=== PATIENT | male | born 1980 | race Caucasian/White ===

== ENCOUNTER 2016-06-14 06:33 | Emergency (ER) | payer MEDICAID ==
[~2016-06-14] VITALS: Ht 175.3 cm; Wt 62.2 kg
[~2016-06-14 06:33] MED LIST: ALBUTEROL MDI; AMOX1TAB64 PO; FLUT1DIS3 INH; HYDR4TAB16 PO; OXYC-302 PO
[2016-06-14] MEDS ORDERED: HYDROmorphone 1 MG/ML, 1ML IM ONE (07:00)
[2016-06-14] MEDS ORDERED: ALBU6.7H INH (07:05)
[2016-06-14] MEDS ORDERED: HYDROmorphone 1 MG/ML, 1ML ONE (07:15)
[2016-06-14] MEDS ORDERED: TRIA10.8 NAS (07:24)
[2016-06-14 08:19] VITALS: BP 120/75
== END 2016-06-14 08:21 | disposition home or self-care (01) ==
LOC: ED 07:32
DX: S72.111A Displaced fracture of greater trochanter of right femur, initial encounter for closed fracture (principal); J45.31 Mild persistent asthma with (acute) exacerbation; Z88.8 Allergy status to other drugs, medicaments and biological substances; Z91.018 Allergy to other foods; X58.XXXA Exposure to other specified factors, initial encounter; Y93.89 Activity, other specified; Y99.8 Other external cause status; Y92.89 Other specified places as the place of occurrence of the external cause
CPT/HCPCS: 73502; 96372; 99284; J1170

== ENCOUNTER 2016-06-21 02:53 | Emergency (ER) | payer MEDICAID ==
[~2016-06-21] VITALS: Ht 175.3 cm; Wt 58.6 kg
[~2016-06-21 02:53] MED LIST changes: +ALBU6.7H INH; +TRIA10.8 NAS
[2016-06-21 02:54] VITALS: BP 108/72
[2016-06-21] MEDS ORDERED: KETOROLAC 30 MG/1 ML ONE (04:24)
[2016-06-21] MEDS ORDERED: KETOROLAC 30 MG/1 ML IM ONE (04:30)
== END 2016-06-21 05:51 | disposition home or self-care (01) ==
LOC: ED 05:45
DX: M25.551 Pain in right hip (principal); G89.29 Other chronic pain; J45.909 Unspecified asthma, uncomplicated; Z87.01 Personal history of pneumonia (recurrent); F12.10 Cannabis abuse, uncomplicated
CPT/HCPCS: 73502; 96372; 99284; J1885

== ENCOUNTER 2016-07-07 01:38 | Emergency (ER) | payer MEDICAID ==
[~2016-07-07] VITALS: Ht 175.3 cm; Wt 55.6 kg
[2016-07-07 01:40] VITALS: BP 99/64
[2016-07-07] MEDS ORDERED: SODIUM CHLORIDE 0.9% 1,000ML IVBOLUS ONE (02:00)
[2016-07-07] MEDS ORDERED: ONDANSETRON 2MG/ML, 2ML IVPush ONE (02:00)
[2016-07-07] MEDS ORDERED: SODIUM CHLORIDE FLUSH 10ML SYR IVF ONE (02:00)
[2016-07-07 02:37] LABS: ASPARTATE AMINO TRANSFERASE 25 U/L (15-37); BLOOD UREA NITROGEN 12 mg/dL (7-18)
[2016-07-07] MEDS ORDERED: ONDANSETRON 2MG/ML, 2ML ONE (02:43)
== END 2016-07-07 03:46 | disposition home or self-care (01) ==
LOC: ED 02:59
DX: K29.00 Acute gastritis without bleeding (principal); J45.909 Unspecified asthma, uncomplicated
CPT/HCPCS: 36415; 80053; 83690; 85025; 99284

== ENCOUNTER 2016-07-10 00:26 | Emergency (ER) | payer MEDICAID ==
[2016-07-11] MEDS ORDERED: OXYC-302 PO (18:21)
== END 2016-07-10 00:58 | disposition left against medical advice (07) ==
LOC: ED 00:52
DX: M79.604 Pain in right leg (principal)

== ENCOUNTER 2016-07-11 17:16 | Emergency (ER) | payer MEDICAID ==
[~2016-07-11] VITALS: Ht 175.3 cm; Wt 57.4 kg
[2016-07-11] MEDS ORDERED: IBUPROFEN 200 MG TABLET ONE (18:17)
[2016-07-11] MEDS ORDERED: OXYC-302 PO (18:21)
[2016-07-11] MEDS ORDERED: IBUPROFEN 200 MG TABLET PO ONE (18:30)
[2016-07-11 19:13] VITALS: BP 114/71
== END 2016-07-11 19:16 | disposition home or self-care (01) ==
LOC: ED 18:37
DX: S72.111A Displaced fracture of greater trochanter of right femur, initial encounter for closed fracture (principal); J45.909 Unspecified asthma, uncomplicated; M25.551 Pain in right hip; X58.XXXA Exposure to other specified factors, initial encounter; Y93.89 Activity, other specified; Y99.8 Other external cause status; Y92.89 Other specified places as the place of occurrence of the external cause
CPT/HCPCS: 99284

== ENCOUNTER 2016-07-20 02:45 | Emergency (ER) | payer MEDICAID ==
[~2016-07-20] VITALS: Ht 175.3 cm; Wt 57.9 kg
[2016-07-20] MEDS ORDERED: LIDOCAINE 1%, 20ML ONE (03:27)
[2016-07-20] MEDS ORDERED: LIDOCAINE 1%, 20ML SQ ONE (03:30)
[2016-07-20] MEDS ORDERED: OXYcodone/APAP 5/325MG TABLET ONE ×2 (04:41→05:45)
[2016-07-20] MEDS ORDERED: KETOROLAC 30 MG/1 ML ONE (04:41)
[2016-07-20] MEDS ORDERED: KETOROLAC 30 MG/1 ML IM ONE (05:00)
[2016-07-20] MEDS ORDERED: OXYcodone/APAP 5/325MG TABLET PO ONE ×2 (05:00→06:00)
[2016-07-20] MEDS ORDERED: CEFAZOLIN 1,000 MG ONE (05:45)
[2016-07-20 05:50] VITALS: BP 108/64
[2016-07-20] MEDS ORDERED: CEFAZOLIN 1,000 MG IM ONE (06:00)
== END 2016-07-20 06:22 | disposition home or self-care (01) ==
LOC: ED 03:26
DX: L03.116 Cellulitis of left lower limb (principal)
CPT/HCPCS: 96372; 99284; J0690; J1885

== ENCOUNTER 2016-08-03 20:17 | Emergency (ER) | payer MEDICAID ==
[~2016-08-03] VITALS: Ht 175.3 cm; Wt 55.7 kg
[2016-08-03 20:21] VITALS: BP 125/80
[2016-08-03] MEDS ORDERED: BUPIVACAINE/PF 0.5% ONE (20:54)
[2016-08-03] MEDS ORDERED: LIDOCAINE 1%, 20ML ONE (20:55)
[2016-08-03] MEDS ORDERED: BUPIVACAINE/PF-EPI 0.25% 1:200K SQ ONE (21:00)
[2016-08-03] MEDS ORDERED: LIDOCAINE 1%, 20ML SQ ONE (21:00)
== END 2016-08-03 21:21 | disposition home or self-care (01) ==
LOC: ED 21:00
DX: K04.7 Periapical abscess without sinus (principal); K02.9 Dental caries, unspecified; J45.909 Unspecified asthma, uncomplicated; F17.200 Nicotine dependence, unspecified, uncomplicated
CPT/HCPCS: 64400

== ENCOUNTER 2016-08-22 17:34 | Emergency (ER) | payer MEDICAID ==
[~2016-08-22] VITALS: Ht 175.3 cm; Wt 56.2 kg
[2016-08-22 18:14] VITALS: BP 106/72
[2016-08-22] MEDS: ALBUTEROL/IPRATROPIUM 2.5MG/0.5MG, 3 ML NPPB SCH (18:31)
== END 2016-08-22 19:07 | disposition home or self-care (01) ==
LOC: ED 18:40
DX: J98.01 Acute bronchospasm (principal); Z88.6 Allergy status to analgesic agent
CPT/HCPCS: 93005; 94640; 99283; J7512; J7620

== ENCOUNTER 2016-08-31 00:32 | Emergency (ER) | payer MEDICAID ==
[~2016-08-31] VITALS: Ht 175.3 cm; Wt 54.7 kg
[~2016-08-31 00:32] MED LIST changes: -HYDR4TAB16 PO; +HYDR4TAB48 PO
[2016-08-31 00:37] VITALS: BP 107/69
[2016-08-31] MEDS ORDERED: ALBUTEROL/IPRATROPIUM 2.5MG/0.5MG, 3 ML NPPB SCH (01:00)
[2016-08-31] MEDS ORDERED: ALBUTEROL/IPRATROPIUM 2.5MG/0.5MG, 3 ML ONE (01:03)
== END 2016-08-31 02:06 | disposition left against medical advice (07) ==
LOC: ED 01:25
DX: J45.41 Moderate persistent asthma with (acute) exacerbation (principal); Z87.01 Personal history of pneumonia (recurrent); F17.200 Nicotine dependence, unspecified, uncomplicated; Z88.8 Allergy status to other drugs, medicaments and biological substances
CPT/HCPCS: 71010; 94640; 99283; J7512; J7620

== ENCOUNTER 2016-09-23 00:35 | Emergency (ER) | payer MEDICAID ==
[~2016-09-23] VITALS: Ht 175.3 cm; Wt 57.1 kg
[2016-09-23 00:36] VITALS: BP 115/79
[2016-09-23] MEDS ORDERED: CEFTRIAXONE 250 MG ONE (01:18)
[2016-09-23] MEDS ORDERED: AZITHROMYCIN 250 MG TABLET ONE (01:18)
[2016-09-23] MEDS ORDERED: CEFTRIAXONE 250 MG IM ONE (01:30)
[2016-09-23] MEDS ORDERED: AZITHROMYCIN 500 MG TABLET PO ONE (01:30)
== END 2016-09-23 01:33 | disposition home or self-care (01) ==
LOC: ED 01:00
DX: N34.1 Nonspecific urethritis (principal); A74.89 Other chlamydial diseases; A54.9 Gonococcal infection, unspecified; J45.909 Unspecified asthma, uncomplicated; F17.200 Nicotine dependence, unspecified, uncomplicated
CPT/HCPCS: 87491; 87591; 96372; 99283; J0696

== ENCOUNTER 2017-11-03 21:28 | Emergency (ER) | payer SELFPAY ==
[~2017-11-03] VITALS: Ht 175.3 cm; Wt 58.1 kg
[2017-11-03 21:29] VITALS: BP 120/77
== END 2017-11-03 22:28 | disposition home or self-care (01) ==
LOC: ED 22:00
DX: M79.671 Pain in right foot (principal); J45.909 Unspecified asthma, uncomplicated
CPT/HCPCS: 99283

== ENCOUNTER 2017-12-12 10:09 | Emergency (ER) | payer MEDICAID ==
[~2017-12-12] VITALS: Ht 175.3 cm; Wt 59.0 kg
[2017-12-12] MEDS ORDERED: ALBUTEROL/IPRATROPIUM 2.5MG/0.5MG, 3 ML NPPB ONE (11:30)
[2017-12-12 11:46] VITALS: BP 97/59
== END 2017-12-12 12:24 | disposition home or self-care (01) ==
LOC: ED 12:20
DX: J45.41 Moderate persistent asthma with (acute) exacerbation (principal); F17.210 Nicotine dependence, cigarettes, uncomplicated; F41.1 Generalized anxiety disorder
CPT/HCPCS: 93005; 94640; 99283; J7512; J7620

== ENCOUNTER 2017-12-19 06:24 | Emergency (ER) | payer MEDICAID ==
[~2017-12-19] VITALS: Ht 175.3 cm; Wt 58.7 kg
[2017-12-19 06:26] VITALS: BP 118/77
== END 2017-12-19 07:15 | disposition home or self-care (01) ==
LOC: ED 07:15
DX: R06.2 Wheezing (principal); Z76.0 Encounter for issue of repeat prescription; R06.02 Shortness of breath
CPT/HCPCS: 99283

== ENCOUNTER 2018-01-16 04:00 | Emergency (ER) | payer MEDICAID ==
[~2018-01-16] VITALS: Ht 175.3 cm; Wt 59.4 kg
[2018-01-16 04:03] VITALS: BP 122/73
[2018-01-16] MEDS ORDERED: ALBUTEROL/IPRATROPIUM 2.5MG/0.5MG, 3 ML ONE (04:51)
[2018-01-16] MEDS ORDERED: ALBUTEROL/IPRATROPIUM 2.5MG/0.5MG, 3 ML NPPB SCH (05:00)
== END 2018-01-16 06:02 | disposition home or self-care (01) ==
LOC: ED 05:19
DX: J45.41 Moderate persistent asthma with (acute) exacerbation (principal); F17.200 Nicotine dependence, unspecified, uncomplicated
CPT/HCPCS: 94640; 99283; J7512; J7620

== ENCOUNTER 2018-01-22 07:03 | Emergency (ER) | payer MEDICAID ==
[~2018-01-22] VITALS: Ht 175.3 cm; Wt 59.8 kg
[2018-01-22] MEDS ORDERED: IBUPROFEN 200 MG TABLET PO ONE (07:30)
[2018-01-22] MEDS ORDERED: IBUPROFEN 200 MG TABLET ONE (07:39)
[2018-01-22 08:55] VITALS: BP 108/65
== END 2018-01-22 08:58 | disposition home or self-care (01) ==
LOC: ED 08:40
DX: S63.621A Sprain of interphalangeal joint of right thumb, initial encounter (principal); F41.9 Anxiety disorder, unspecified; J45.909 Unspecified asthma, uncomplicated; F17.210 Nicotine dependence, cigarettes, uncomplicated; Z87.01 Personal history of pneumonia (recurrent); Z87.19 Personal history of other diseases of the digestive system; Z87.09 Personal history of other diseases of the respiratory system; W01.0XXA Fall on same level from slipping, tripping and stumbling without subsequent striking against object, initial encounter; Y93.89 Activity, other specified; Y92.89 Other specified places as the place of occurrence of the external cause; Y99.8 Other external cause status
CPT/HCPCS: 29125; 99284

== ENCOUNTER 2018-03-11 05:13 | Emergency (ER) | payer MEDICAID ==
[~2018-03-11] VITALS: Ht 175.3 cm; Wt 60.0 kg
[2018-03-11 05:16] VITALS: BP 123/60
== END 2018-03-11 05:52 | disposition home or self-care (01) ==
LOC: ED 05:45
DX: B34.9 Viral infection, unspecified (principal); J45.901 Unspecified asthma with (acute) exacerbation; F17.210 Nicotine dependence, cigarettes, uncomplicated; F41.1 Generalized anxiety disorder
CPT/HCPCS: 99282

== ENCOUNTER 2018-05-08 10:53 | Emergency (ER) | payer MEDICAID ==
[~2018-05-08] VITALS: Ht 175.3 cm; Wt 58.0 kg
[2018-05-08 11:13] VITALS: BP 113/71
[2018-05-08] MEDS ORDERED: ALBUTEROL/IPRATROPIUM 2.5MG/0.5MG, 3 ML ONE (11:30)
[2018-05-08] MEDS ORDERED: ALBUTEROL/IPRATROPIUM 2.5MG/0.5MG, 3 ML NPPB SCH (11:30)
== END 2018-05-08 11:47 | disposition home or self-care (01) ==
LOC: ED 11:39
DX: J45.21 Mild intermittent asthma with (acute) exacerbation (principal); Z76.0 Encounter for issue of repeat prescription
CPT/HCPCS: 99283; J7512

== ENCOUNTER 2018-06-01 22:13 | Emergency (ER) | payer MEDICAID ==
[~2018-06-01] VITALS: Ht 175.3 cm; Wt 58.5 kg
[2018-06-01 22:17] VITALS: BP 113/70
== END 2018-06-01 23:02 | disposition home or self-care (01) ==
LOC: ED 22:56
DX: B34.9 Viral infection, unspecified (principal); Z76.0 Encounter for issue of repeat prescription; F41.1 Generalized anxiety disorder
CPT/HCPCS: 99283

== ENCOUNTER 2018-06-19 14:51 | Emergency (ER) | payer MEDICAID ==
[~2018-06-19] VITALS: Ht 175.3 cm; Wt 56.0 kg
[2018-06-19 15:03] VITALS: BP 110/58
== END 2018-06-19 15:28 | disposition home or self-care (01) ==
LOC: ED 15:20
DX: K02.9 Dental caries, unspecified (principal); K08.89 Other specified disorders of teeth and supporting structures; J45.909 Unspecified asthma, uncomplicated
CPT/HCPCS: 99283

== ENCOUNTER 2018-06-26 02:24 | Emergency (ER) | payer MEDICAID ==
[~2018-06-26] VITALS: Ht 175.3 cm; Wt 57.0 kg
--- NOTE | 2018-06-26 02:45 | NUR ---
FIRST CONTACT WITH PT. PATIENT STATES HE JUST WOKE UP HAVING HARD TIME BREATHING. HX OF ASTHMA. RAN OUT OF INHALER. PT DENIES ANY OTHER S/S. PT'S AOX4. RESPS EVEN AND UNLABORED. BP/SPO2 MONITORS IN PLACE. CALL LIGHT WITHIN REACH.
[2018-06-26] MEDS ORDERED: ALBUTEROL/IPRATROPIUM 2.5MG/0.5MG, 3 ML ONE (02:59)
--- NOTE | 2018-06-26 03:02 | NUR ---
PT MEDICATED PER EMAR. PT TOLERATED WELL. RT AT BEDSIDE NOW.
[2018-06-26] MEDS ORDERED: ALBUTEROL/IPRATROPIUM 2.5MG/0.5MG, 3 ML NPPB PRN (03:30)
--- NOTE | 2018-06-26 04:10 | NUR ---
pt sleeping in [facility]. bp/spo2 monitors in place. call light within reach.
[2018-06-26 04:47] VITALS: BP 105/60
--- NOTE | 2018-06-26 04:48 | NUR ---
pt given dc instructions and scripts. pt educated regarding dc medications. pt amb to dc with steady gait. no acute distress at dc.
== END 2018-06-26 04:49 | disposition home or self-care (01) ==
LOC: ED 02:43
DX: J45.31 Mild persistent asthma with (acute) exacerbation (principal)
CPT/HCPCS: 94640; 99283; J7512; J7620

== ENCOUNTER 2018-07-23 03:05 | Emergency (ER) | payer MEDICAID ==
[~2018-07-23] VITALS: Ht 175.3 cm; Wt 54.0 kg
--- NOTE | 2018-07-23 03:27 | NUR ---
PT STATES "HE IS HAVING A ASTHMA ATTACK. I WOKE UP LIKE THIS AND CAN'T FIND MY VENTOLIN INHALER." SPO2 91% ON ROOM AIR, PT PLACED ON 2L NASAL CANNULA. PT ABLE TO SPEAK 5-6 WORD SENTENCES. NON PRODUCTIVE COUGH NOTED WITH EXPIRATORY WHEEZES.
[2018-07-23] MEDS ORDERED: ALBUTEROL/IPRATROPIUM 2.5MG/0.5MG, 3 ML ONE (03:36)
--- NOTE | 2018-07-23 03:37 | NUR ---
RT AT BEDSIDE FOR BREATHING TREATMENT. PT MEDICATED PER EMAR WITH PREDNISONE 60MG PO.
[2018-07-23] MEDS: ALBUTEROL/IPRATROPIUM 2.5MG/0.5MG, 3 ML NPPB SCH ×2 (03:40→04:11)
--- NOTE | 2018-07-23 04:01 | NUR ---
PT SLEEPING. VSS. REMOVED OXYGEN. NO SHORTNESS OF BREATH NOTED.
[2018-07-23 04:45] VITALS: BP 126/74
--- NOTE | 2018-07-23 04:45 | NUR ---
Patient/Caregiver given discharge instructions and they have confirmed that they understand the instructions. Patient ambulatory with steady gait.
== END 2018-07-23 04:47 | disposition home or self-care (01) ==
LOC: ED 03:21
DX: J45.901 Unspecified asthma with (acute) exacerbation (principal); F17.200 Nicotine dependence, unspecified, uncomplicated
CPT/HCPCS: 71045; 94640; 99284; J7512; J7620

== ENCOUNTER 2018-08-15 13:08 | Emergency (ER) | payer MEDICAID ==
[~2018-08-15] VITALS: Ht 175.3 cm; Wt 58.0 kg
--- NOTE | 2018-08-15 13:29 | NUR ---
PT SOB FOR TWO DAYS AND WORSE TODAY. DIMISHED LUNG SOUNDS AND RETRACTIONS. PA AT BEDSIDE EXAMINING PT
[2018-08-15] MEDS ORDERED: ALBUTEROL/IPRATROPIUM 2.5MG/0.5MG, 3 ML ONE (13:30)
[2018-08-15] MEDS ORDERED: ALBUTEROL/IPRATROPIUM 2.5MG/0.5MG, 3 ML NPPB PRN (13:30)
--- NOTE | 2018-08-15 13:34 | NUR ---
RT GIVING BREATHING TX
--- NOTE | 2018-08-15 13:41 | NUR ---
LUNG SOUNDS IMPROVED AFTER BREATHING TREATMENT. WOB IMPROVED. WILL CONTINUE TO MONITOR
[2018-08-15 13:42] VITALS: BP 107/71
--- NOTE | 2018-08-15 13:58 | NUR ---
Pt reports feeling "better" after RT treatment, chart up for recheck.
== END 2018-08-15 14:41 | disposition home or self-care (01) ==
LOC: ED 14:04
DX: J45.41 Moderate persistent asthma with (acute) exacerbation (principal)
CPT/HCPCS: 94640; 99284; J7512; J7620

== ENCOUNTER 2018-08-28 01:18 | Emergency (ER) | payer MEDICAID ==
[~2018-08-28] VITALS: Ht 175.3 cm; Wt 53.0 kg
[2018-08-28] MEDS ORDERED: ALBUTEROL 0.5%, 20ML ONE (01:48)
--- NOTE | 2018-08-28 01:54 | NUR ---
PT MEDICATED PER EMAR. PT TOLERATED WELL.
--- NOTE | 2018-08-28 01:54 | NUR ---
FIRST CONTACT WITH PT. PT HAS "asthma attack". PT'S AOX4. RESPS EVEN AND UNLABORED. DENIES ANY OTHER SYMPTOMS. ALL MONITORS IN PLACE. CALL LIGHT WITHIN REACH.
[2018-08-28] MEDS ORDERED: ALBUTEROL 0.5%, 20ML NPPB SCH (02:00)
[2018-08-28 02:07] LABS: BASOPHILS # (AUTO) 0.06 x10^3/uL (0-0.1); BASOPHILS % (AUTO) 1 % (0-1); EOSINOPHILS # (AUTO) 0.64 x10^3/uL (0-0.4); EOSINOPHILS % (AUTO) 8 % (1-7); LYMPHOCYTES # (AUTO) 1.93 x10^3/uL (1-3.4); LYMPHOCYTES % (AUTO) 23 % (22-44); MD NO; MEAN CORPUSCULAR HEMOGLOBIN 33.4 pg (27.5-34.5); MEAN CORPUSCULAR HGB CONC 33.3 g/dL (33.2-36.2); MEAN CORPUSCULAR VOLUME 100.1 fL (81-97); MEAN PLATELET VOLUME 8.1 fL (7.4-10.4); MONOCYTES # (AUTO) 0.76 x10^3/uL (0.2-0.8); MONOCYTES % (AUTO) 9 % (2-9); NEUTROPHILS # (AUTO) 4.91 x10^3/uL (1.8-6.8); NEUTROPHILS % (AUTO) 59 % (42-75); PLATELET COUNT 259 x10^3/uL (130-400); RED CELL DISTRIBUTION WIDTH 12.8 % (9.4-14.8)
[2018-08-28 02:18] LABS: ALBUMIN 3.8 g/dL (3.4-5.0); ANION GAP 2 mmol/L (5-15); CALCIUM 8.9 mg/dL (8.5-10.1); CHLORIDE 107 mmol/L (98-107); CREATININE 1.09 mg/dL (0.7-1.3)
--- NOTE | 2018-08-28 03:13 | NUR ---
PT SLEEPING IN [facility]. RESPS EVEN AND UNLABORED. ALL MONITORS IN PLACE. CALL LIGHT WITHIN REACH.
[2018-08-28 03:30] VITALS: BP 111/72
--- NOTE | 2018-08-28 03:36 | NUR ---
PT GIVEN DC INSTRUCTIONS AND SCRIPTS. PT EDUCATED REGARDING DC MEDICATIONS. PT'S AOX4. RESPS EVEN AND UNLABORED. PT AMB TO DC WITH STEADY GAIT. NO ACUTE DISTRESS AT DC.
== END 2018-08-28 03:36 | disposition home or self-care (01) ==
LOC: ED 03:11
DX: J45.41 Moderate persistent asthma with (acute) exacerbation (principal); F17.200 Nicotine dependence, unspecified, uncomplicated
CPT/HCPCS: 36415; 71045; 80048; 82040; 85025; 94644; 99284; J7512

== ENCOUNTER 2018-09-05 06:22 | Emergency (ER) | payer MEDICAID ==
[~2018-09-05] VITALS: Ht 175.3 cm; Wt 57.5 kg
[2018-09-05] MEDS ORDERED: KETOROLAC 30 MG/1 ML IM ONE (07:30)
[2018-09-05] MEDS ORDERED: KETOROLAC 60 MG/2 ML ONE (07:33)
--- NOTE | 2018-09-05 07:59 | NUR ---
pt laying on gurney with eyes closed, responds approp to staff, NAD, comfort measures provided, call light within reach.
[2018-09-05 08:37] VITALS: BP 104/35
--- NOTE | 2018-09-05 08:38 | NUR ---
Patient given discharge instructions and they have confirmed that they understand the instructions. Patient ambulatory with steady gait.
== END 2018-09-05 08:39 | disposition home or self-care (01) ==
LOC: ED 07:35
DX: J45.31 Mild persistent asthma with (acute) exacerbation (principal); J20.8 Acute bronchitis due to other specified organisms; B34.9 Viral infection, unspecified; F41.1 Generalized anxiety disorder; Z87.01 Personal history of pneumonia (recurrent)
CPT/HCPCS: 71046; 93005; 96372; 99283; J1885

== ENCOUNTER 2018-10-09 07:41 | Emergency (ER) | payer MEDICAID ==
[~2018-10-09] VITALS: Ht 175.3 cm; Wt 55.0 kg
[~2018-10-09 07:41] MED LIST changes: -ALBU6.7H INH; +ALBU6.7H8 INH
[2018-10-09 07:58] VITALS: BP 133/79
== END 2018-10-09 08:34 | disposition home or self-care (01) ==
LOC: ED 08:11
DX: J45.909 Unspecified asthma, uncomplicated (principal); Z76.0 Encounter for issue of repeat prescription
CPT/HCPCS: 99283

== ENCOUNTER 2018-10-26 17:46 | Emergency (ER) | payer MEDICAID ==
[~2018-10-26] VITALS: Ht 175.3 cm; Wt 53.8 kg
[2018-10-26 17:49] VITALS: BP 120/76
== END 2018-10-26 18:26 | disposition home or self-care (01) ==
LOC: ED 18:09
DX: J45.909 Unspecified asthma, uncomplicated (principal); F17.200 Nicotine dependence, unspecified, uncomplicated; Z76.0 Encounter for issue of repeat prescription
CPT/HCPCS: 99283

== ENCOUNTER 2019-01-09 09:03 | Emergency (ER) | payer MEDICAID ==
[~2019-01-09] VITALS: Ht 175.3 cm; Wt 55.0 kg
[2019-01-09 09:10] VITALS: BP 105/53
--- NOTE | 2019-01-09 09:22 | NUR ---
Pt ambulated to room from triage with steady gait and balance. NADN. No needs expressed.
--- NOTE | 2019-01-09 09:27 | NUR ---
Pt requesting Rx for albuterol and advair. Pt declines treatment in ED today. Pt states, "I don't want to do that, I just want the prescriptions," when speaking to EDPA.
--- NOTE | 2019-01-09 09:30 | NUR ---
Patient given discharge instructions and they have confirmed that they understand the instructions. Patient ambulatory with steady gait. Pt left with Rx, D/C paperwork, and all personal belongings. NADN. No other needs expressed.
== END 2019-01-09 09:32 | disposition home or self-care (01) ==
LOC: ED 09:30
DX: R06.00 Dyspnea, unspecified (principal); Z76.0 Encounter for issue of repeat prescription; F17.200 Nicotine dependence, unspecified, uncomplicated; J45.909 Unspecified asthma, uncomplicated
CPT/HCPCS: 99283

== ENCOUNTER 2019-02-23 03:11 | Emergency (ER) | payer MEDICAID ==
[~2019-02-23] VITALS: Ht 175.3 cm; Wt 56.9 kg
--- NOTE | 2019-02-23 03:56 | NUR ---
PT. REPORTS WOKE UP SOB AND "MY CHEST REALLY HURTS" PT. UNABLE TO GIVE DESCRIPTION OF PAIN. HX OF ASTHMA. PT. REPORTS RAN OUT OF INHAILER AT HOME. RT TO BS FOR BREATHING TX AT THIS TIME. ALL MONITORS IN PLACE. CALL LIGHT IN REACH, ALL SAFETY MEASURES OBSERVED.
[2019-02-23] MEDS ORDERED: ALBUTEROL/IPRATROPIUM 2.5MG/0.5MG, 3 ML ONE (03:58)
[2019-02-23] MEDS ORDERED: ALBUTEROL/IPRATROPIUM 2.5MG/0.5MG, 3 ML NPPB ONE (04:00)
[2019-02-23 05:07] VITALS: BP 110/84
== END 2019-02-23 05:20 ==
LOC: ED 05:14
DX: J45.901 Unspecified asthma with (acute) exacerbation (principal); F17.210 Nicotine dependence, cigarettes, uncomplicated
CPT/HCPCS: 71046; 93005; 94640; 99283; J7620

== ENCOUNTER 2019-04-16 13:39 | Emergency (ER) | payer MEDICAID ==
[~2019-04-16] VITALS: Ht 175.3 cm; Wt 58.2 kg
[2019-04-16 13:49] VITALS: BP 123/81
== END 2019-04-16 15:20 | disposition home or self-care (01) ==
LOC: ED 14:16
DX: S60.222A Contusion of left hand, initial encounter (principal); S61.452A Open bite of left hand, initial encounter; J45.909 Unspecified asthma, uncomplicated; F17.200 Nicotine dependence, unspecified, uncomplicated; Z76.0 Encounter for issue of repeat prescription; X58.XXXA Exposure to other specified factors, initial encounter; Y93.89 Activity, other specified; Y92.89 Other specified places as the place of occurrence of the external cause; Y99.8 Other external cause status
CPT/HCPCS: 99283

== ENCOUNTER 2019-08-28 11:03 | Emergency (ER) | payer MEDICAID ==
[~2019-08-28] VITALS: Ht 175.3 cm; Wt 58.2 kg
--- NOTE | 2019-08-28 11:15 | NUR ---
C/O SORE THROAT X 1-1/2 DAYS. PAIN W/ SWALLOWING. DENIES RECENT COUGH, FEVER, HEAD/CHEST COLD SX, SOB, DYSPNEA. NO PAIN MEDS TAKEN.
[2019-08-28] MEDS ORDERED: ALBU90AE INH (11:19)
--- NOTE | 2019-08-28 11:22 | NUR ---
ELMER BUSCH BS FOR EXAM
[2019-08-28] MEDS ORDERED: HYDROcodone/APAP 7.5-325MG/15ML UDC PO PRN (11:30)
[2019-08-28] MEDS ORDERED: DEXAMETHASONE 4 MG/ML, 1ML PO ONE (11:30)
[2019-08-28] MEDS ORDERED: DEXAMETHASONE 4 MG/ML, 1ML ONE (11:36)
[2019-08-28] MEDS ORDERED: HYDROcodone/APAP 7.5-325MG/15ML UDC ONE (11:36)
--- NOTE | 2019-08-28 11:43 | NUR ---
PT MEDICATED PER EMAR
[2019-08-28 12:20] VITALS: BP 114/74
== END 2019-08-28 12:23 | disposition home or self-care (01) ==
LOC: ED 11:44
DX: J03.00 Acute streptococcal tonsillitis, unspecified (principal); J45.909 Unspecified asthma, uncomplicated; F17.210 Nicotine dependence, cigarettes, uncomplicated
CPT/HCPCS: 99283; J1100

== ENCOUNTER 2020-02-12 02:47 | Emergency (ER) | payer MEDICAID ==
[~2020-02-12] VITALS: Ht 175.3 cm; Wt 64.0 kg
[~2020-02-12 02:47] MED LIST changes: +ALBU90AE INH
[2020-02-12] MEDS ORDERED: ALBUTEROL/IPRATROPIUM 2.5MG/0.5MG, 3 ML ONE (03:20)
--- NOTE | 2020-02-12 03:25 | NUR ---
PT MEDICATED PER EMAR, DUO NEB TX STARTED. PT TOLERATING WELL.
[2020-02-12] MEDS ORDERED: ALBUTEROL/IPRATROPIUM 2.5MG/0.5MG, 3 ML NPPB ONE (03:30)
--- NOTE | 2020-02-12 04:05 | NUR ---
PT STATES RELIEF AFTER BREATHING TX.
[2020-02-12 04:06] VITALS: BP 110/63
== END 2020-02-12 04:36 | disposition home or self-care (01) ==
LOC: ED 04:30
DX: J45.31 Mild persistent asthma with (acute) exacerbation (principal); R94.31 Abnormal electrocardiogram [ECG] [EKG]; F17.210 Nicotine dependence, cigarettes, uncomplicated
CPT/HCPCS: 93005; 94640; 99283; 99406; J7512

== ENCOUNTER 2020-08-07 14:41 | Emergency (ER) | payer MEDICAID ==
[~2020-08-07] VITALS: Ht 175.3 cm; Wt 63.0 kg
[~2020-08-07 14:41] MED LIST changes: -OXYC-302 PO; +OXYC1TAB14 PO
[2020-08-07 15:26] LABS: BASOPHILS % (AUTO) 1 % (0-1); EOSINOPHILS % (AUTO) 3 % (1-7); LYMPHOCYTES % (AUTO) 17 % (22-44); MEAN CORPUSCULAR HEMOGLOBIN 33.7 pg (27.5-34.5); MEAN CORPUSCULAR HGB CONC 34.5 g/dL (33.2-36.2); MEAN PLATELET VOLUME 8.6 fL (7.4-10.4); MONOCYTES % (AUTO) 14 % (2-9); NEUTROPHILS % (AUTO) 67 % (42-75); PLATELET COUNT 316 x10^3/uL (130-400); RED BLOOD COUNT 5.06 x10^6/uL (4.38-5.82); RED CELL DISTRIBUTION WIDTH 12.1 % (9.4-14.8)
--- NOTE | 2020-08-07 15:31 | NUR ---
PT TO ROOM AFTER CXR. LAB IN TO DRAW. PT PLACED ON ALL ROOM MONITORING. PT STATES NO PAIN AT THIS TIME. WARM BLANKET PROVIDED, CALL LIGHT WITHIN REACH.
[2020-08-07 15:35] LABS: ALBUMIN 4.9 g/dL (3.4-5.0); ANION GAP 9 mmol/L (5-15); CALCIUM 10.2 mg/dL (8.5-10.1); CHLORIDE 102 mmol/L (98-107); CREATININE 1.72 mg/dL (0.7-1.3)
[2020-08-07 15:39] LABS: TROPONIN I < 0.015 ng/mL (0.000-0.045)
[2020-08-07 15:47] LABS: MD SCAN
[2020-08-07 15:49] VITALS: BP 108/65
== END 2020-08-07 16:44 | disposition home or self-care (01) ==
LOC: ED 15:00
DX: R07.89 Other chest pain (principal); N28.9 Disorder of kidney and ureter, unspecified; J45.909 Unspecified asthma, uncomplicated
CPT/HCPCS: 36415; 71045; 80048; 82040; 84484; 85025; 93005; 99285